=== PATIENT | female | born 1945 | race Caucasian/White ===

== ENCOUNTER 2017-10-05 06:49 | Day surgery (SDC) | payer MEDICARE, MEDICAID ==
[2017-10-05 10:04] LABS: #Eosinphils 0.3 thou/uL (0.0-0.7); #Lymphocytes 1.3 thou/uL (1.20-3.40); #Monocytes 0.5 thou/uL (0.11-0.59); #Neutrophils 4.1 thou/uL (1.40-6.50); %Basophils 0.7 % (0.0-1.0); %Eosinophils 4.5 % (0.0-10.0); %Lymphocytes 20.6 % (21.0-51.0); %Monocytes 7.6 % (0.0-10.0); %Neutrophils 66.6 % (42.0-75.0); Hemoglobin 12.4 g/dL (12.0-16.0); Mean Corpuscular HGB CONC 32.4 g/dL (32.0-36.0); Mean Corpuscular Hemoglobin 32.7 pg (27.0-31.0); Mean Platelet Volume 8.5 fL (7.4-10.4); Platelet Count 160 thou/uL (130-400); RBC Distribution Width 13.8 % (11.5-14.5); White Blood Cell (WBC) Count 6.1 thou/uL (4.8-10.8)
[2017-10-05 10:29] LABS: ALT (SGPT) 14 U/L (8-55); AST (SGOT) 22 U/L (5-34); Albumin 3.7 g/dL (3.4-4.8); Alkaline Phosphatase 118 U/L (40-150); Anion Gap 13 mmol/L (10-20); BUN (Urea Nitrogen) 19 mg/dL (9.8-20.1); Bilirubin, Total 0.6 mg/dL (0.2-1.2); Calc. Creatinine Clearance 0 mL/min (70-130); Calcium 9.2 mg/dL (7.8-10.44); Carbon Dioxide 29 mmol/L (23-31); Chloride 102 mmol/L (98-107); Estimated GFR-MDRD 53; Globulin 2.5 g/dL (2.4-3.5); Glucose 121 mg/dL (83-110); Protein, Total 6.2 g/dL (6.0-8.3); Sodium 139 mmol/L (136-145)
--- NOTE | 2017-10-05 12:43 | MMO ---
NEEDLE LOCALIZATION OF THE RIGHT BREAST: History: Suspicious calcification right breast. Comparison: None. FINDINGS: Successful needle localization of calcification right breast. Proctor needle and wire were secured to t he patient. There were no immediate or post procedure complications. Technique: Consent obtained to perform a right breast needle localization for surgical excision. Right breast wa s evaluated. The calcification were identified. Skin was prepped and draped in sterile fashion. 1% Li docaine buffered with sodium bicarbonate used for local anesthesia. In the CC projection, 10 cm Proctor needle and wire was advanced such that the needle and wire were adjacent to the calcification. Needl e position was confirmed in the lateral projection. Wire was deployed. Needle wire was secured to the patient. Patient tolerated the procedure well. No immediate post procedure complication. IMPRESSION: Successful right breast needle localization. EXAM: SURGICAL SPECIMEN: Three separate specimen radiographs were submitted for interpretation. The first two radiographs did not have calcifications. The third specimen had multiple calcifications. Findings were conveyed to Dr Angeles Garcia 1-23-18 at 12:14 p.m. Code CR POS: [email or web address]
[2017-10-05] MEDS ORDERED: ePHEDrine/0.9% NaCl/PF SYRINGE 50 mg/10 ml ONE (12:56)
[2017-10-05] MEDS ORDERED: Glycopyrrolate 0.2 MG/ML 5 ML SYRINGE ONE (12:56)
[2017-10-05] MEDS ORDERED: PHENYLEPHRINE-NS 100 MCG/ML 10 ML SYRINGE ONE (12:56)
[2017-10-05] MEDS ORDERED: Lidocaine 1% PF 5 ML VIAL ONE (12:56)
[2017-10-05] MEDS ORDERED: Propofol 200 MG/20 ML VIAL ONE (12:56)
[2017-10-05] MEDS ORDERED: Ondansetron HCl/PF 4 MG/2 ML Vial ONE (12:56)
--- NOTE | 2017-10-05 16:03 | OP ---
DATE OF OPERATION: 10/05/2017 PREOPERATIVE DIAGNOSIS: Right breast microcalcifications, retroareolar upper half, deep of 6-8 cm. POSTOPERATIVE DIAGNOSIS: Right breast microcalcifications, retroareolar upper half, deep of 6-8 cm. PROCEDURE: Mammographically needle localized excisional biopsy microcalcifications right breast with specimen mammography to assure retrieval. Note, localizing needle projected from the upper mid righ t breast laterally towards the axilla and the initial specimen did not contain microcalcifications. Wound was opened and more breast resected inferiorly and again specimen did not achieve microcalcific ations. Bowel resection deep upper half retroareolar submitted and microcalcifications evident. Hem ostasis gained with the cautery. Subcutaneous tissues approximated with 3-0 Monocryl, skin with subd ermal 4-0 Monocryl and local anesthetic infiltrated in the biopsy cavity for postoperative pain contr ol. 0.25% Marcaine without epinephrine, 30 mL, mixed with 1% Xylocaine with epinephrine, 30 mL used . The patient tolerated the procedure well.
--- NOTE | 2017-10-05 23:45 | EKG ---
Test Reason : PREOP Blood Pressure : / mmHG Vent. Rate : 068 BPM Atrial Rate : 068 BPM P-R Int : 188 ms QRS Dur : 080 ms QT Int : 422 ms P-R-T Axes : 043 034 066 degrees QTc Int : 448 ms Normal sinus rhythm Low voltage QRS Borderline ECG When compared with ECG of 04-MAR-2015 23:30, No significant change was found Confirmed by Ceferino PATEL ([id number]) on 10/05/2017 11:44:50 PM Referred By: TERRI Confirmed By:Ceferino PATEL
== END 2017-10-05 14:46 | disposition home or self-care (01) ==
LOC: MAMMO 06:49
PROVIDERS: ATTEND Specialist
PROC: 0HBT0ZX Excision of Right Breast, Open Approach, Diagnostic (ICD-10-PCS; principal; 2017-10-05)
DX: N60.81 Other benign mammary dysplasias of right breast (principal); Z88.8 Allergy status to other drugs, medicaments and biological substances; Z90.49 Acquired absence of other specified parts of digestive tract; Z98.890 Other specified postprocedural states
CPT/HCPCS: 19281; 76098; 80053; 85025; 88305; 93005; 93010; 96374